=== PATIENT | male | born 1930 | race Caucasian/White ===

== ENCOUNTER 2016-09-27 18:38 | Emergency (ER) | payer MEDICARE ==
[~2016-09-27] VITALS: Wt 81.6 kg
[~2016-09-27 18:38] MED LIST: LOPRESSOR25 MG PO; LOPRESSOR50 MG PO; TERAZOSIN5 MG PO; ZOCOR40 MG PO
[2016-09-27] MEDS ORDERED: LOPRESSOR100 M1 PO (19:04)
[2016-09-27] MEDS ORDERED: MOTRIN IB200 M1 PO (19:05)
[2016-09-27] MEDS ORDERED: COLACE100 MG PO (19:05)
[2016-09-27] MEDS ORDERED: LORAZEPAM1 MG PO (19:05)
[2016-09-27 19:41] LABS: BASO # 0.1 10*3/uL (0.0-0.1); BASO % 0.8 % (0.0-1.0); EOS # 1.1 10*3/uL (0.0-0.4); EOS % 13.7 % (1.0-4.0); HEMOGLOBIN 11.7 g/dl (14.0-18.0); LYMPH # 2.1 10*3/uL (1.3-4.4); LYMPH % 27.4 % (27.0-41.0); MEAN CELL VOLUME 87.2 fl (80.0-94.0); MEAN CORPUSCULAR HGB 28.3 pg (27.0-31.0); MEAN CORPUSCULAR HGB CONC 32.5 g/dl (33.0-37.0); MONO # 0.7 10*3/uL (0.1-1.0); MONO % 8.5 % (3.0-9.0); NEUT # 3.8 10*3/uL (2.3-7.9); NEUT % 49.3 % (47.0-73.0); PLATELET COUNT AUTOMATED 196 10*3/uL (130-400); RED BLOOD COUNT 4.13 10*6/uL (4.50-5.90); RED CELL DISTRI WIDTH 15.9 % (0-14.5); WHITE BLOOD COUNT 7.7 10*3/uL (4.8-10.8)
[2016-09-27 19:56] LABS: BUN 25 mg/dl (7-24); CARBON DIOXIDE 27 mmol/L (21-32); CHLORIDE 109 mmol/L (98-107); EST GLOM FILT AFRICAN AMERICAN 45 ml/min; GLUCOSE 98 mg/dL (65-99); POTASSIUM 4.4 mmol/L (3.5-5.1); SODIUM 145 mmol/L (136-145)
[2016-09-27 20:37] LABS: BILIRUBIN NEGATIVE (NEGATIVE); BLOOD 3+ (NEGATIVE); CLARITY CLEAR (CLEAR); COLOR YELLOW (YELLOW); GLUCOSE NEGATIVE (NEGATIVE); KETONE NEGATIVE (NEGATIVE); LEUKO ESTERASE TRACE (NEGATIVE); NITRITE NEGATIVE (NEGATIVE); PH 5.5 (5.0-9.0); PROTEIN NEGATIVE (NEGATIVE); SPECIFIC GRAVITY 1.015 (1.005-1.030); UROBILINOGEN 0.2 E.U./dl (0.2-1.0)
[2016-09-27 20:47] LABS: URINE AMPHETAMINES < 1000 (1000ng/ml); URINE BARBITURATES < 200 (200ng/ml); URINE COCAINE < 300 (300ng/ml)
[2016-09-27 20:50] LABS: RBC 21-30 rbc/hpf (0-2); URINE REFLEX COMMENT YES (NO)
== END 2016-09-27 21:29 | disposition home or self-care (01) ==
LOC: ED 18:38
PROVIDERS: Emergency Medicine Emergency Medical Services
DX: R32 Unspecified urinary incontinence (principal); F32.9 Major depressive disorder, single episode, unspecified; Z85.46 Personal history of malignant neoplasm of prostate

== ENCOUNTER 2016-10-21 08:08 | Inpatient (IN) | payer MEDICARE ==
[~2016-10-21] VITALS: Ht 180.3 cm; Wt 77.7 kg
--- NOTE | ~2016-10-21 | WRIGHTHP ---
[place], [place] PATIENT HISTORY AND PHYSICAL EXAM NAME: MATHIEU VILLANUEVA [facility] #: [id number] UNIT #: [id number] ROOM: 420 DOCTOR: KENDALL CHAKRABORTY MD BIRTHDATE: [birth year] DOS: 10/21/2016 HISTORY OF PRESENT ILLNESS: 1. The patient is an 86-year-old gentleman with a past medical history of benign essential hypertension. 2. History of mixed hyperlipidemia. 3. History of urinary retention with Vaughn catheter placement. 4. History of cancer of the prostate, status post radiation. 5. History of pancreatic cancer. The patient was at [facility] under care of hospice when he pulled out his Vaughn catheter and had some hematuria as well as he got quite agitated and was unmanageable by the nursing staff at the retirement, so he was sent to the Emergency Department. In the Emergency Department, the patient was quite cooperative and mentioned that he just wanted to . According to nursing staff at [facility], he had altered mental status and acting abnormal according to patient's with episodes of yelling. After admission now, the patient is quite calm and collected and cooperative. No complaints of any chest pain or shortness of breath. No other GI or urinary symptoms. SYSTEMS REVIEW: LUNGS: No increasing shortness of breath or wheezing. GASTROINTESTINAL: No nausea, vomiting, diarrhea, constipation. GENITOURINARY: The patient had some blood in his urine after he pulled his Vaughn catheter out and he also has pain when urinating. SOCIAL HISTORY: Denies smoking cigarettes, alcohol and drug abuse. The patient had been recently living at [facility]. FAMILY HISTORY: Noncontributory. HOME MEDICATIONS: Ibuprofen, lorazepam, Colace, Haldol, nortriptyline, tramadol, Zyprexa, metoprolol, DuoNebs. PHYSICAL EXAMINATION: GENERAL: Alert and oriented, generalized weakness. HEENT AND NECK: Extraocular movements are intact. Sclerae are anicteric. Oral mucosa is moist and clean. No obvious facial weakness. Neck is supple without any lymphadenopathy. No thyromegaly. No JVD. No carotid arterial bruits. LUNGS: Clear to auscultation. No wheezing. No rhonchi. CARDIOVASCULAR SYSTEM: Heart rate is regular in rate and rhythm. S1 and S2 normally audible. No significant murmur or any other abnormal cardiac sounds. ABDOMEN: Soft, nontender. No obvious organomegaly. Bowel sounds are present. No obvious herniation. CENTRAL NERVOUS SYSTEM: Alert and oriented x 3. Cranial nerves II-XII are intact. Speech is normal. The patient is able to move all extremities. Normal muscle strength. Deep tendon reflexes are equal on both sides. Plantars were downgoing. EXTREMITIES: Without significant cyanosis. Warm to touch. 1 to 2+ ankle [place], [place] PATIENT HISTORY AND PHYSICAL EXAM NAME: MATHIEU VILLANUEVA UNIT #: [id number] ROOM: 420 DOCTOR: KENDALL CHAKRABORTY MD BIRTHDATE: [birth year] edema, more on the right side. IMPRESSION: 1. The patient presenting with agitation, pain, anxiety and advanced pancreatic cancer. The patient is end stage, and after stabilizing his mood with help of Psychiatry, I will send him back to the retirement. Dr. Padilla, the psychiatrist, has been consulted. I will keep him on Haldol on as need basis. 2. Pancreatic cancer with pain, presently asymptomatic. 3. Chronic constipation, treated with senna and Colace, which is being continued. 4. Benign essential hypertension with controlled blood pressures. 5. Old age, advanced disability and malignancy. We are taking bedsore precautions including every 2 hour turning and air mattress is being used. KENDALL CHAKRABORTY MD CM:HISPHYS:PATIENT HISTORY AND PHYSICAL EXAMINATION [id number] KENDALL CHAKRABORTY MD 10/21/161953 interface
--- NOTE | ~2016-10-21 | DS ---
[place], [place] DISCHARGE SUMMARY NAME: MATHIEU VILLANUEVA UNIT #: [id number] ROOM: 420 DOCTOR: KENDALL CHAKRABORTY MD BIRTHDATE: [birth year] DOS: 10/21/2016 DISCHARGE DIAGNOSES: 1. The patient with cancer of the prostate suspected on MRI study done at [facility] under hospice care for end-of-life. 2. History of mixed hyperlipidemia. 3. History of Vaughn catheter for urine retention in the past. 4. History of cancer of the prostate, status post radiation. 5. History of pancreatic cancer. 6. Benign essential hypertension. 7. History of agitation and anxiety off and on. HOSPITAL COURSE: The patient was under care of hospice at [facility], when he pulled out his Vaughn catheter which resulted in hematuria and he became quite agitated and unmanageable at the alf, so he was sent to Emergency Department at [facility] and after initial management, he was admitted to the hospital for wanting to and agitation and some confusion. Case discussed with patient's daughter and and they are unable to take care of him at home. The patient again started having yelling episodes. The patient was admitted to [facility] and Dr. Padilla, the psychiatrist, was consulted. The patient calmed down and he is quite oriented now and also able to ambulate in the hallways. The patient is agreeable to go back to the alf and would like to have a room by himself. The patient is being followed by [facility]. CA of the pancreas suspected at [facility], where he had the MRI performed. No treatment was recommended and the patient's family, his and daughter understands this. Chronic constipation, treated with senna and Colace. The patient moving his bowels regularly. Benign essential hypertension with controlled blood pressures. Old age advanced disability and malignancy. We will take bed sore precautions with every 2 hour turning. LABORATORY DATA: Normal ammonia level at 17. TSH with slight elevation at 4.9. Vitamin D low at 22.4. DISCHARGE MANAGEMENT: Mirtazapine 15 mg at bedtime, Haldol 1 mg every hour p.r.n., not to exceed 4 mg a day, metoprolol 100 mg b.i.d., tramadol 100 mg every 8 hours p.r.n. for pain, senna 8.6 mg b.i.d., olanzapine 5 mg every 12 hours as needed for agitation, ibuprofen 600 mg every 8 hours p.r.n. for pain, omeprazole add at 20 mg a day, DuoNeb every 6 hours p.r.n. for shortness of breath. Consult Dr. Padilla to follow. [place], [place] DISCHARGE SUMMARY NAME: MATHIEU VILLANUEVA UNIT #: [id number] ROOM: 420 DOCTOR: KENDALL CHAKRABORTY MD BIRTHDATE: [birth year] KENDALL CHAKRABORTY MD CM:GIANCARLO [id number] KENDALL CHAKRABORTY MD 10/22/16 1740 interface
--- NOTE | ~2016-10-21 | CON ---
[place], [place] REPORT OF CONSULTATION NAME: MATHIEU VILLANUEVA UNIT #: [id number] ROOM: 420 DOCTOR: HARRIET PAIZ MD BIRTHDATE: [birth year] DOS: 10/22/2016 CHIEF COMPLAINT: Oh, I had quite a spell." HISTORY OF PRESENT ILLNESS: This is an 86-year-old white male who was a recent admission at [facility] who was admitted now to [facility] after he pulled out his Vaughn catheter and had gross hematuria. During the course of the evaluation, the patient had stated that he wanted to . He was acutely agitated and aggressive. However, this subsided very quickly and subsequently since his admission, he has been rather subdued and quiet. He has stated that he is frustrated by his current physical health decline and wishes he would pass, but is not actively suicidal. He reports he has had periods where he is not sleeping well. He is not eating well. He feels nauseated and does episodically have some vomiting. He and his also mentioned that he has periods of acute confusion with agitation as he puts it they call it when he goes around to bend, sometimes she is able to redirect, other times he becomes physically aggressive. There is no rhyme or reason to the occurrence of these periods of acute confusion and agitation. The patient also along with his voiced a wish to be placed in another long term other than [facility] stating that they were not pleased with the services there. PAST MEDICAL HISTORY: Remarkable for hyperlipidemia, hypertension, prostate cancer, urinary retention and a history of pancreatic cancer. MENTAL STATUS: The patient is alert and oriented to person, place, and approximate to time. Mood does seem somewhat depressed. Affect is somewhat flat. He seems somewhat frustrated, but very cooperative. There is no hypomania or jose. There are no acute psychotic symptoms. No auditory or visual hallucinations are noted. No delusions, no paranoia. Short-term memory has mild gaps, otherwise he is intact. DIAGNOSIS: Major depression, recurrent. PLAN: I will discontinue his Pamelor in lieu of Remeron 15 mg at bedtime. I had discussed this medication with both he and his stating that this is an antidepressant that will rapidly aid sleep and appetite as well as decrease nausea and vomiting and he is okay with this change. I will also go ahead and check serum ammonia, TSH, vitamin B12 and vitamin D levels to rule out any organic factors. I am going to request social media manager to be involved as soon as possible to look into alternative placements for him as they prefer not to return to [facility]. Should you require further assistance, please consult me in the future. I do not feel he needs to be admitted to the [facility]; however. [place], [place] REPORT OF CONSULTATION NAME: MATHIEU VILLANUEVA UNIT #: [id number] ROOM: 420 DOCTOR: HARRIET PAIZ MD BIRTHDATE: [birth year] HARRIET PAIZ MD CM:CONSTR:REPORT OF CONSULTATION 1043 10/22/16 1203 interface
[~2016-10-21 08:08] MED LIST changes: +COLACE100 MG PO; +LOPRESSOR100 M1 PO; +LORAZEPAM1 MG PO; +MOTRIN IB200 M1 PO
[2016-10-21 08:14] VITALS: BP 143/72
[2016-10-21] MEDS ORDERED: HALDOL0.5 MG PO (08:21)
[2016-10-21] MEDS ORDERED: PAMELOR10 M1 PO (08:21)
[2016-10-21] MEDS ORDERED: SENNA8.6 MG PO (08:22)
[2016-10-21] MEDS ORDERED: TRAMADOL HCL50 MG PO (08:22)
[2016-10-21] MEDS ORDERED: ZYPREXA5 M1 PO (08:23)
[2016-10-21 10:30] VITALS: BP 171/90
[2016-10-21] MEDS ORDERED: DUONEB 3 MG/3 ML3 M1 INH (12:03)
[2016-10-21] MEDS ORDERED: LOPRESSOR50 M1 PO (12:07)
[2016-10-21 16:00] VITALS: BP 149/84
[2016-10-22] VITALS: BP 153/86
[2016-10-22 08:00] VITALS: BP 167/90
[2016-10-22 13:14] LABS: VITAMIN D, 25-HYDROXY 22.4 ng/mL (30-100)
[2016-10-22 16:00] VITALS: BP 148/82
== END 2016-10-22 17:18 | DRG 435 ==
LOC: ED 08:08 → 4E 09:17 → EDHOLD 09:17 → 4E 09:30
PROVIDERS: Psychiatry & Neurology Psychiatry
DX: C25.9 Malignant neoplasm of pancreas, unspecified (principal); G93.41 Metabolic encephalopathy; F33.9 Major depressive disorder, recurrent, unspecified; I10 Essential (primary) hypertension; E78.2 Mixed hyperlipidemia; K59.09 Other constipation; F41.9 Anxiety disorder, unspecified; Z66 Do not resuscitate; G89.3 Neoplasm related pain (acute) (chronic); Z51.5 Encounter for palliative care; Z92.3 Personal history of irradiation; Z79.899 Other long term (current) drug therapy; Z98.890 Other specified postprocedural states

== ENCOUNTER 2017-09-28 10:52 | Inpatient (IN) | payer MEDICARE ==
[~2017-09-28] VITALS: Ht 170.1 cm; Wt 83.9 kg
[~2017-09-28 10:52] MED LIST changes: +DUONEB 3 MG/3 ML3 M1 INH; +HALDOL0.5 MG PO; +LOPRESSOR50 M1 PO; +PAMELOR10 M1 PO; +SENNA8.6 MG PO; +TRAMADOL HCL50 MG PO; +ZYPREXA5 M1 PO
[2017-09-28 10:53] VITALS: BP 150/105
[2017-09-28 11:15] LABS: BASO # 0.1 10*3/uL (0.0-0.1); BASO % 0.9 % (0.0-1.0); EOS # 0.1 10*3/uL (0.0-0.4); EOS % 2.1 % (1.0-4.0); HEMATOCRIT 45.2 % (42.0-52.0); HEMOGLOBIN 14.5 g/dl (14.0-18.0); LYMPH # 1.5 10*3/uL (1.3-4.4); LYMPH % 22.2 % (27.0-41.0); MEAN CELL VOLUME 86.9 fl (80.0-94.0); MEAN CORPUSCULAR HGB 27.9 pg (27.0-31.0); MEAN CORPUSCULAR HGB CONC 32.1 g/dl (33.0-37.0); MEAN PLATELET VOLUME 10.8 fl (9.6-12.3); MONO # 0.8 10*3/uL (0.1-1.0); MONO % 12.3 % (3.0-9.0); NEUT # 4.1 10*3/uL (2.3-7.9); PLATELET COUNT AUTOMATED 162 10*3/uL (130-400); RED CELL DISTRI WIDTH 15.6 % (0-14.5); WHITE BLOOD COUNT 6.6 10*3/uL (4.8-10.8)
[2017-09-28 11:26] LABS: ACT PARTIAL THROMBO TIME 30.1 SECONDS (20.8-31.5); INTERNATIONAL NORM RATIO 1.4 (2.0-3.5)
[2017-09-28 11:30] LABS: ALBUMIN 2.9 gm/dl (3.1-4.5); CREATININE 1.49 mg/dL (0.70-1.30); POTASSIUM 4.1 mmol/L (3.5-5.1); TOTAL PROTEIN 7.5 gm/dL (6.4-8.2)
[2017-09-28] MEDS ORDERED: LASIX40 MG PO (11:32)
[2017-09-28 11:39] LABS: TROPONIN I 0.192 ng/ml (<0.045)
[2017-09-28 12:10] VITALS: BP 148/90
[2017-09-28 13:40] VITALS: BP 133/90
[2017-09-28 13:53] VITALS: BP 156/88
[2017-09-28] MEDS ORDERED: IMODIUM A-D2 M2 PO (14:29)
[2017-09-28 16:00] VITALS: BP 156/90
[2017-09-28 20:00] VITALS: BP 160/90
[2017-09-29] VITALS: BP 135/82
[2017-09-29 06:38] LABS: BASO # 0.1 10*3/uL (0.0-0.1); BASO % 0.7 % (0.0-1.0); EOS # 0.2 10*3/uL (0.0-0.4); EOS % 2.8 % (1.0-4.0); HEMATOCRIT 43.4 % (42.0-52.0); HEMOGLOBIN 14.1 g/dl (14.0-18.0); LYMPH # 1.7 10*3/uL (1.3-4.4); LYMPH % 22.6 % (27.0-41.0); MEAN CELL VOLUME 86.1 fl (80.0-94.0); MEAN CORPUSCULAR HGB CONC 32.5 g/dl (33.0-37.0); MEAN PLATELET VOLUME 10.5 fl (9.6-12.3); MONO # 0.9 10*3/uL (0.1-1.0); MONO % 12.2 % (3.0-9.0); NEUT # 4.5 10*3/uL (2.3-7.9); NEUT % 61.3 % (47.0-73.0); PLATELET COUNT AUTOMATED 154 10*3/uL (130-400); RED BLOOD COUNT 5.04 10*6/uL (4.50-5.90); RED CELL DISTRI WIDTH 15.9 % (0-14.5); WHITE BLOOD COUNT 7.4 10*3/uL (4.8-10.8)
[2017-09-29 06:51] LABS: ALBUMIN 2.5 gm/dl (3.1-4.5); ALKALINE PHOSPHATASE 281 U/L (45-117); BUN 31 mg/dl (7-24); CHLORIDE 106 mmol/L (98-107); CREATININE 1.35 mg/dL (0.70-1.30); PHOSPHOROUS 2.9 mg/dL (2.5-4.9); SGOT/AST 35 IU/L (3-35); SGPT/ALT 27 U/L (12-78); SODIUM 140 mmol/L (136-145); TOTAL PROTEIN 6.7 gm/dL (6.4-8.2)
[2017-09-29 06:57] LABS: TROPONIN I 0.083 ng/ml (<0.045)
[2017-09-29 07:07] LABS: ACT PARTIAL THROMBO TIME 31.6 SECONDS (20.8-31.5); INTERNATIONAL NORM RATIO 1.5 (2.0-3.5)
[2017-09-29 08:12] VITALS: BP 164/108
[2017-09-29 12:01] VITALS: BP 151/103
[2017-09-29 16:00] VITALS: BP 140/96
[2017-09-29 20:00] VITALS: BP 141/93
[2017-09-30] VITALS: BP 133/75
[2017-09-30 07:56] LABS: BUN 28 mg/dl (7-24); CHLORIDE 105 mmol/L (98-107); CREATININE 1.34 mg/dL (0.70-1.30); SODIUM 141 mmol/L (136-145)
[2017-09-30 08:00] VITALS: BP 150/94
[2017-09-30 12:00] VITALS: BP 144/89
[2017-09-30 16:00] VITALS: BP 134/83
[2017-09-30 20:00] VITALS: BP 146/80
[2017-10-01] VITALS: BP 133/78
[2017-10-01 08:00] VITALS: BP 156/82
[2017-10-01 12:00] VITALS: BP 146/90
[2017-10-01 16:00] VITALS: BP 156/93
[2017-10-01] MEDS ORDERED: XARE20MG PO (17:43)
[2017-10-01] MEDS ORDERED: ATORVASTATIN CA40 M1 PO (17:43)
[2017-10-01] MEDS ORDERED: RESTORIL15 MG PO (18:36)
== END 2017-10-01 18:40 | disposition home or self-care (01) | DRG 308 ==
LOC: ED 10:52 → 4E 12:32 → EDHOLD 12:32 → 4E 12:42
PROVIDERS: Family Medicine; Internal Medicine; Student in an Organized Health Care Education/Training Program
DX: I48.91 Unspecified atrial fibrillation (principal); N17.0 Acute kidney failure with tubular necrosis; C25.9 Malignant neoplasm of pancreas, unspecified; C85.90 Non-Hodgkin lymphoma, unspecified, unspecified site; E44.1 Mild protein-calorie malnutrition; C61 Malignant neoplasm of prostate; R74.8 Abnormal levels of other serum enzymes; R73.9 Hyperglycemia, unspecified; I10 Essential (primary) hypertension; R60.0 Localized edema; Z79.01 Long term (current) use of anticoagulants; Z79.899 Other long term (current) drug therapy; Z84.89 Family history of other specified conditions; Z68.27 Body mass index [BMI] 27.0-27.9, adult

== ENCOUNTER → 2017-10-08 | Outpatient (CLI) | payer MEDICARE ==
[~2017-10-08] MED LIST changes: +ATORVASTATIN CA40 M1 PO; +IMODIUM A-D2 M2 PO; +LASIX40 MG PO; +RESTORIL15 MG PO; +XARE20MG PO
--- NOTE | ~2017-10-08 | ST ---
[place], [place] EXERCISE STRESS TEST REPORT NAME: MATHIEU VILLANUEVA [facility] #: [id number] UNIT #: [id number] ROOM: DOCTOR: LINA DANIELLE MD BIRTHDATE: [birth year] DOS: 10/08/2017 PHARMACOLOGIC STRESS TEST INDICATIONS: Heart failure, silent myocardial infarction. PROCEDURE IN DETAIL: The patient was given rapid bolus infusion of regadenoson 0.4 mg intravenously, followed by a saline flush. He did experience dyspnea and a mild headache, but this all resolved spontaneously. His resting electrocardiogram showed atrial fibrillation with a controlled ventricular response. He did have frequent PVCs or aberrant contracted beats. 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 No further changes occurred with the infusion. Forty seconds after the infusion of regadenoson, he was given radionuclide intravenously. His resting heart rate of 82 emily to 83. The resting blood pressure 144/84 fell to 134/64. IMPRESSION: 1. Well tolerated infusion of regadenoson. 2. Radionuclide administered. Please see the separate imaging report for further details of the patient's stress test results. LINA DANIELLE MD CM:STRESS:EXERCISE STRESS TEST REPORT [id number] LINA DANIELLE MD
== END ==
LOC: CARD 03:30
DX: I51.7 Cardiomegaly (principal)

== ENCOUNTER 2017-12-21 06:30 | Emergency (ER) | payer MEDICARE ==
[~2017-12-21] VITALS: Ht 162.5 cm; Wt 74.8 kg
--- NOTE | ~2017-12-21 | EKG ---
[place], [place] ELECTROCARDIOGRAM REPORT NAME: MATHIEU VILLANUEVA UNIT #: [id number] ROOM: DOCTOR: ELIJAH JIMÉNEZ,BENY BIRTHDATE: [birth year] DOS: 12/21/2017 TIME: 7:54 a.m. IMPRESSION: 1. Atrial fibrillation with controlled ventricular rate. 2. Old anterior infarction. 3. Lateral ST-T changes. 4. Prolonged QTc interval, consider drugs or electrolyte abnormality. BENY NAVA MD CM:EKGRPT:ELECTROCARDIOGRAM REPORT [id number] BENY NAVA MD
[2017-12-21 06:46] LABS: BILIRUBIN 2+ (NEGATIVE); BLOOD 3+ (NEGATIVE); CLARITY TURBID (CLEAR); GLUCOSE TRACE (NEGATIVE); KETONE 1+ (NEGATIVE); LEUKO ESTERASE 2+ (NEGATIVE); NITRITE POSITIVE (NEGATIVE); PH 6.5 (5.0-9.0); SPECIFIC GRAVITY 1.015 (1.005-1.030)
[2017-12-21 06:48] LABS: COLOR RED (YELLOW)
[2017-12-21 06:57] LABS: BACTERIA 4+; RBC TNTC rbc/hpf (0-2)
[2017-12-21 08:02] LABS: BASO # 0.1 10*3/uL (0.0-0.1); BASO % 0.9 % (0.0-1.0); EOS # 0.2 10*3/uL (0.0-0.4); EOS % 3.3 % (1.0-4.0); HEMATOCRIT 39.3 % (42.0-52.0); HEMOGLOBIN 12.8 g/dl (14.0-18.0); LYMPH # 1.1 10*3/uL (1.3-4.4); LYMPH % 19.4 % (27.0-41.0); MEAN CELL VOLUME 85.2 fl (80.0-94.0); MEAN CORPUSCULAR HGB 27.8 pg (27.0-31.0); MEAN CORPUSCULAR HGB CONC 32.6 g/dl (33.0-37.0); MEAN PLATELET VOLUME 9.9 fl (9.6-12.3); MONO # 0.7 10*3/uL (0.1-1.0); MONO % 12.7 % (3.0-9.0); NEUT # 3.7 10*3/uL (2.3-7.9); NEUT % 63.5 % (47.0-73.0); PLATELET COUNT AUTOMATED 147 10*3/uL (130-400); RED BLOOD COUNT 4.61 10*6/uL (4.50-5.90); RED CELL DISTRI WIDTH 18.1 % (0-14.5); WHITE BLOOD COUNT 5.8 10*3/uL (4.8-10.8)
[2017-12-21 08:13] LABS: ACT PARTIAL THROMBO TIME 39.8 SECONDS (20.8-31.5); INTERNATIONAL NORM RATIO 1.6 (2.0-3.5)
[2017-12-21 08:17] LABS: ALBUMIN 2.7 gm/dl (3.1-4.5); ALKALINE PHOSPHATASE 266 U/L (45-117); BUN 21 mg/dl (7-24); CHLORIDE 104 mmol/L (98-107); CREATININE 1.25 mg/dL (0.70-1.30); LIPASE 304 U/L (73-393); POTASSIUM 3.5 mmol/L (3.5-5.1); SGOT/AST 58 IU/L (3-35); SGPT/ALT 38 U/L (12-78); SODIUM 139 mmol/L (136-145); TOTAL PROTEIN 7.5 gm/dL (6.4-8.2); TROPONIN I 0.036 ng/ml (<0.045)
[2017-12-21] MEDS ORDERED: CIPRO500 MG PO (09:24)
== END 2017-12-21 09:36 | disposition home or self-care (01) ==
LOC: ED 06:30
PROVIDERS: Emergency Medicine; Emergency Medicine Emergency Medical Services
DX: N39.0 Urinary tract infection, site not specified (principal); R31.9 Hematuria, unspecified; I11.0 Hypertensive heart disease with heart failure; I50.9 Heart failure, unspecified; I48.91 Unspecified atrial fibrillation; Z90.89 Acquired absence of other organs; Z98.890 Other specified postprocedural states; Z79.899 Other long term (current) drug therapy

== ENCOUNTER → 2017-12-26 | Outpatient (CLI) | payer MEDICARE ==
[~2017-12-26] MED LIST changes: +CIPRO500 MG PO
== END | disposition home or self-care (01) ==
LOC: RESCLI 03:25
DX: Z09 Encounter for follow-up examination after completed treatment for conditions other than malignant neoplasm (principal); I11.0 Hypertensive heart disease with heart failure; I50.22 Chronic systolic (congestive) heart failure; I48.0 Paroxysmal atrial fibrillation; R31.0 Gross hematuria; N39.0 Urinary tract infection, site not specified; C61 Malignant neoplasm of prostate; I10 Essential (primary) hypertension; E78.2 Mixed hyperlipidemia

== ENCOUNTER 2018-01-26 07:13 | Emergency (ER) | payer MEDICARE ==
[~2018-01-26] VITALS: Ht 170.1 cm; Wt 81.6 kg
[2018-01-26 07:42] LABS: BASO # 0.1 10*3/uL (0.0-0.1); BASO % 0.8 % (0.0-1.0); EOS # 0.2 10*3/uL (0.0-0.4); EOS % 2.5 % (1.0-4.0); HEMATOCRIT 37.9 % (42.0-52.0); HEMOGLOBIN 12.1 g/dl (14.0-18.0); LYMPH # 1.3 10*3/uL (1.3-4.4); LYMPH % 20.6 % (27.0-41.0); MEAN CELL VOLUME 88.6 fl (80.0-94.0); MEAN CORPUSCULAR HGB 28.3 pg (27.0-31.0); MEAN CORPUSCULAR HGB CONC 31.9 g/dl (33.0-37.0); MEAN PLATELET VOLUME 10.3 fl (9.6-12.3); MONO # 0.9 10*3/uL (0.1-1.0); MONO % 13.7 % (3.0-9.0); NEUT % 62.2 % (47.0-73.0); PLATELET COUNT AUTOMATED 134 10*3/uL (130-400); RED BLOOD COUNT 4.28 10*6/uL (4.50-5.90); WHITE BLOOD COUNT 6.4 10*3/uL (4.8-10.8)
[2018-01-26 07:59] LABS: ALBUMIN 2.8 gm/dl (3.1-4.5); ALKALINE PHOSPHATASE 273 U/L (45-117); BUN 23 mg/dl (7-24); CHLORIDE 102 mmol/L (98-107); CREATININE 1.27 mg/dL (0.70-1.30); POTASSIUM 3.9 mmol/L (3.5-5.1); SGOT/AST 49 IU/L (3-35); SGPT/ALT 36 U/L (12-78); SODIUM 136 mmol/L (136-145); TOTAL PROTEIN 7.5 gm/dL (6.4-8.2)
[2018-01-26 08:10] LABS: BILIRUBIN 1+ (NEGATIVE); BLOOD 3+ (NEGATIVE); CLARITY CLOUDY (CLEAR); COLOR BROWN (YELLOW); GLUCOSE NEGATIVE (NEGATIVE); KETONE NEGATIVE (NEGATIVE); LEUKO ESTERASE NEGATIVE (NEGATIVE); NITRITE NEGATIVE (NEGATIVE); PH 6.5 (5.0-9.0); SPECIFIC GRAVITY 1.015 (1.005-1.030)
[2018-01-26 08:28] LABS: RBC TNTC rbc/hpf (0-2)
== END 2018-01-26 08:59 | disposition home or self-care (01) ==
LOC: ED 07:13
PROVIDERS: Student in an Organized Health Care Education/Training Program
DX: R33.9 Retention of urine, unspecified (principal); I48.91 Unspecified atrial fibrillation; I11.0 Hypertensive heart disease with heart failure; I50.9 Heart failure, unspecified; Z79.899 Other long term (current) drug therapy; Z85.46 Personal history of malignant neoplasm of prostate; Z87.891 Personal history of nicotine dependence; Z90.89 Acquired absence of other organs

== ENCOUNTER → 2018-06-27 | Outpatient (CLI) | payer MEDICARE ==
[2018-06-27 18:06] LABS: BILIRUBIN NEGATIVE (NEGATIVE); BLOOD TRACE-INTACT (NEGATIVE); CLARITY CLEAR (CLEAR); COLOR YELLOW (YELLOW); GLUCOSE NEGATIVE (NEGATIVE); KETONE NEGATIVE (NEGATIVE); LEUKO ESTERASE NEGATIVE (NEGATIVE); NITRITE NEGATIVE (NEGATIVE); PH 5.5 (5.0-9.0); UROBILINOGEN 0.2 E.U./dl (0.2-1.0)
[2018-06-27 18:07] LABS: BASO # 0.1 10*3/uL (0.0-0.1); EOS # 0.3 10*3/uL (0.0-0.4); EOS % 4.6 % (1.0-4.0); HEMOGLOBIN 10.4 g/dl (14.0-18.0); LYMPH # 1.7 10*3/uL (1.3-4.4); LYMPH % 28.5 % (27.0-41.0); MEAN CELL VOLUME 88.2 fl (80.0-94.0); MEAN CORPUSCULAR HGB 27.8 pg (27.0-31.0); MEAN CORPUSCULAR HGB CONC 31.5 g/dl (33.0-37.0); MEAN PLATELET VOLUME 10.4 fl (9.6-12.3); MONO # 0.8 10*3/uL (0.1-1.0); MONO % 13.8 % (3.0-9.0); NEUT % 51.9 % (47.0-73.0); PLATELET COUNT AUTOMATED 162 10*3/uL (130-400); RED BLOOD COUNT 3.74 10*6/uL (4.50-5.90); RED CELL DISTRI WIDTH 15.1 % (0-14.5); WHITE BLOOD COUNT 5.9 10*3/uL (4.8-10.8)
[2018-06-27 18:13] LABS: BACTERIA 2+; RBC 21-30 rbc/hpf (0-2)
[2018-06-27 18:19] LABS: BUN 24 mg/dl (7-24); CHLORIDE 104 mmol/L (98-107); CREATININE 1.34 mg/dL (0.70-1.30); POTASSIUM 4.1 mmol/L (3.5-5.1); SODIUM 138 mmol/L (136-145)
== END | disposition home or self-care (01) ==
LOC: LAB 17:16
PROVIDERS: Internal Medicine Cardiovascular Disease
DX: I50.23 Acute on chronic systolic (congestive) heart failure (principal); I49.9 Cardiac arrhythmia, unspecified

== ENCOUNTER → 2018-07-02 | Outpatient (CLI) | payer MEDICARE ==
[2018-07-02 13:46] LABS: CREATININE 1.51 mg/dL (0.70-1.30); POTASSIUM 3.2 mmol/L (3.5-5.1)
== END | disposition home or self-care (01) ==
LOC: LAB 12:58
PROVIDERS: Internal Medicine Cardiovascular Disease
DX: I50.23 Acute on chronic systolic (congestive) heart failure (principal); I48.91 Unspecified atrial fibrillation; I49.9 Cardiac arrhythmia, unspecified

== ENCOUNTER → 2018-07-16 | Outpatient (CLI) | payer MEDICARE ==
[2018-07-16 11:40] LABS: CREATININE 1.56 mg/dL (0.70-1.30)
== END | disposition home or self-care (01) ==
LOC: LAB 10:10
PROVIDERS: Internal Medicine Cardiovascular Disease
DX: I50.23 Acute on chronic systolic (congestive) heart failure (principal)

== ENCOUNTER → 2018-07-23 | Outpatient (CLI) | payer MEDICARE ==
[2018-07-23 10:50] LABS: CREATININE 1.47 mg/dL (0.70-1.30); POTASSIUM 3.5 mmol/L (3.5-5.1)
== END ==
LOC: LAB 09:55
PROVIDERS: Internal Medicine Cardiovascular Disease
DX: I11.0 Hypertensive heart disease with heart failure (principal); I50.23 Acute on chronic systolic (congestive) heart failure; I48.91 Unspecified atrial fibrillation; I49.9 Cardiac arrhythmia, unspecified